=== PATIENT | female | born 1990 | race Caucasian/White ===

== ENCOUNTER 2022-11-03 09:56 | Emergency (ER) | payer BC ==
[2022-11-03 11:02] LABS: PTT,PARTIAL THROMBOPLSTIN TIME 24.5 SEC (22.0-34.0)
== END 2022-11-03 11:15 | disposition home or self-care (01) ==
LOC: DL.ED 09:56
DX: N93.8 Other specified abnormal uterine and vaginal bleeding (principal); N92.0 Excessive and frequent menstruation with regular cycle
CPT/HCPCS: 36415; 84703; 85025; 85610; 85730; 99283; 99284